=== PATIENT | male | born 1985 | race Caucasian/White ===

== ENCOUNTER → 2022-05-13 19:36 | Outpatient (CLI) | payer OTHER, SELFPAY ==
--- NOTE | 2022-05-13 | DI.MRI.S_ITS ---
PROCEDURE: MR KNEE RT WO CON INDICATIONS: PAIN IN RT KNEE TECHNIQUE: Noncontrast sagittal PD fast spin echo and T2 fast spin echo with fat saturation, sagittal 3-D FLASH with fat saturation; coronal T1 spin echo and PD fast spin echo with fat saturation, and axial PD fast spin echo with fat saturation through the knee. COMPARISON: None. FINDINGS: Image quality: There is mild inhomogeneous fat saturation. Menisci: There is minimal degenerative signal within the medial and lateral menisci without a discrete tear. The meniscal root ligaments appear intact. Cruciate ligaments: The anterior and posterior cruciate ligaments appear intact. Medial structures: The medial collateral ligament appears mildly thickened proximally with intermediate signal suggesting sequelae of a prior mild sprain. The semimembranosus tendon insertions and meniscocapsular junction appear intact. Visualized portions of the pes anserinus tendons appear intact without associated bursal fluid collections. Lateral structures: The lateral collateral ligament, long and short heads of the biceps femoris tendon appear intact. The popliteus tendon appears intact. Iliotibial band appears normal. Anterior structures: The quadriceps and patellar tendons appear intact. Patellar alignment is normal. No femoral trochlear dysplasia or ventral trochlear prominence. No edema in the infrapatellar fat pad. Bones and cartilage: No bone marrow contusions or fractures. There is mild cartilage thinning and superficial chondral fraying along the median ridge of the patella and lateral femoral condyle. Mild cartilage thinning with superficial chondral irregularity demonstrated within the medial compartment. Mild surface irregularity also demonstrated in the lateral compartment. Joint space: There is a minimal joint effusion. There is a trace Richardson's cyst. Normal appearing synovial plicae are incidentally noted. IMPRESSION: 1. Mild tricompartmental superficial chondral degeneration. 2. Minimal joint effusion. 3. Sequelae of a prior mild sprain of the proximal MCL. Dictated by: Calos Ely M.D. on 05/13/2022 at 23:48 Approved by: Calos Ely M.D. on 05/13/2022 at 23:52
== END ==
DX: M25.561 Pain in right knee (principal); S83.411S Sprain of medial collateral ligament of right knee, sequela
CPT/HCPCS: 73721